=== PATIENT | female | born 1940 | race Caucasian/White ===

== ENCOUNTER 2017-03-27 12:55 | Day surgery (SDC) | payer MEDICARE ==
[2017-03-27] MEDS ORDERED: diphenhydrAMINE 25 MG CAP PO SCH (13:15)
[2017-03-27] MEDS ORDERED: Acetaminophen 500 MG TAB PO SCH (13:15)
[2017-03-27] MEDS ORDERED: Sodium Chloride 0.9% 20 ML ONE (14:48)
[2017-03-27 19:21] VITALS: BP 160/71; TEMP 98.2
== END 2017-03-27 19:22 | disposition home or self-care (01) ==
LOC: ONC/OP 12:55
PROVIDERS: ATTEND Internal Medicine Gastroenterology
PROC: 30233N1 Transfusion of Nonautologous Red Blood Cells into Peripheral Vein, Percutaneous Approach (ICD-10-PCS; principal; 2017-03-27)
DX: D50.9 Iron deficiency anemia, unspecified (principal); K31.819 Angiodysplasia of stomach and duodenum without bleeding; Z88.2 Allergy status to sulfonamides; Z88.5 Allergy status to narcotic agent
CPT/HCPCS: 36415; 36430; 86850; 86900; 86901; A4216; P9016

== ENCOUNTER 2017-05-06 12:24 | Outpatient (CLI) | payer MEDICARE | END 2017-05-06 12:25 | disposition home or self-care (01) | LOC: BICMAMMO 12:24 | PROVIDERS: ATTEND Internal Medicine | DX: Z12.31 Encounter for screening mammogram for malignant neoplasm of breast (principal); Z13.820 Encounter for screening for osteoporosis; Z80.3 Family history of malignant neoplasm of breast | CPT/HCPCS: 77063; 77067; G0206; G0279; 77080 ==